=== PATIENT | male | born 1970 | race Caucasian/White ===

== ENCOUNTER 2019-01-25 15:57 | Emergency (ER) | payer MEDICAID, OTHER ==
[2019-01-25 16:06] VITALS: BP 138/92; PULSE 84; RESP 16; TEMP 97.7; O2SAT 98
--- NOTE | 2019-01-25 17:17 | ED PDOC ---
HPI: Abdomen Time Seen by Provider: 01/25/19 17:07 Chief Complaint (Nursing): Abdominal Pain Chief Complaint (Provider): Medical clearance History Per: Patient History/Exam Limitations: no limitations Onset/Duration Of Symptoms: Days (4x) Current Symptoms Are (Timing): Gone Now Severity: Mild Additional Complaint(s): 48 year old male with no past medical history presents to the ED for medical clearance. 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 Patient reports that his last episode of vomiting was 4x nights ago. 2-3x nights ago, patient reports having 2-3x episodes of diarrhea. Patient reports eating only rice and a banana yesterday, Patient states that today upon arrival to work, he was instructed to get medical clearance from a doctor prior to returning. Patient denies having abdominal pain, fevers, chest pain, shortness of breath, nausea, vomiting, or urinary symptoms. Patient states that he is eating normally since yesterday. PMD: None provided. Past Medical History Reviewed: Historical Data, Nursing Documentation, Vital Signs Vital Signs: Last Vital Signs Temp 97.7 F 01/25/19 16:03 Pulse 84 01/25/19 16:03 Resp 16 01/25/19 16:03 BP 138/92 H 01/25/19 16:03 Pulse Ox 98 01/25/19 16:03 ESTEPHANIA Report Viewed: Yes Primary Care Provider: FAMILY PROVIDER,NO - Medical History PMH: No Chronic Diseases Denies: HIV - Surgical History Surgical History: Back Surgery - Family History Family History: States: No Known Family Hx - Home Medications Home Medications: Ambulatory Orders Medication Instructions Recorded Promethazine DM [Phenergan DM 10 ml PO TID #8 oz 11/16/16 Syrup] levoFLOXacin [Levaquin] 500 mg PO DAILY #7 tab 11/16/16 - Allergies Allergies/Adverse Reactions: Allergies Allergy/AdvReac Type Severity Reaction Status Date / Time No Known Allergies Allergy Verified 01/25/19 16:03 Review of Systems ROS Statement: Except As Marked, All Systems Reviewed And Found Negative Constitutional: Negative for: Fever Cardiovascular: Negative for: Chest Pain Respiratory: Negative for: Shortness of Breath Gastrointestinal: Negative for: Nausea, Vomiting, Abdominal Pain, Diarrhea Genitourinary Male: Negative for: Dysuria, Frequency, Incontinence Physical Exam - Reviewed Nursing Documentation Reviewed: Yes Vital Signs Reviewed: Yes - Physical Exam Appears: Positive for: Well, Non-toxic, No Acute Distress Head Exam: Positive for: ATRAUMATIC, NORMOCEPHALIC Skin: Positive for: Normal Color, Warm, Dry Cardiovascular/Chest: Positive for: Regular Rate, Rhythm Respiratory: Positive for: Normal Breath Sounds Gastrointestinal/Abdominal: Positive for: Normal Exam, Bowel Sounds (normal), Soft, Other (large abdomen). Negative for: Tenderness Neurological/Psych: Positive for: Awake, Alert, Oriented (3x) - ECG O2 Sat by Pulse Oximetry: 98 (RA) Pulse Ox Interpretation: Normal Medical Decision Making Medical Decision Makin:07 Initial impression: 48 year old male in the ED for medical clearance 17:13 Patient is medically stable, and requires no further treatment in the ED at this time. Patient will be discharged home cleared for work. Counseling was provided and all questions were answered regarding diagnosis. There is agreement to discharge plan. Return if symptoms persist or worsen. ScribeAttestation: Documented Michael Wynn, acting as a scribe for Bijal Champagne BROADCAST TRANSMITTER OPERATOR. Provider ScribeAttestation: All medical record entries made by the Scribe were at my direction and personally dictated by me. I have reviewed the chart and agree that the record accurately reflects my personal performance of the history, physical exam, medical decision making, and the department course for this patient. I have also personally directed, reviewed, and agree with the discharge instructions and disposition. Disposition - Clinical Impression Clinical Impression: Food poisoning - Patient ED Disposition Is Patient to be Admitted: No Counseled Patient/Family Regarding: Diagnosis - Disposition Disposition: Routine/Home Disposition Time: 17:13 Condition: GOOD Additional Instructions: Patient is cleared to return to work. Instructions: Food Poisoning (DC) Forms: [facility] (Yoruba), [facility] ED School/Work Excuse Print Language: NIUEAN - POA Present On Arrival: None
== END 2019-01-25 17:14 | disposition home or self-care (01) ==
LOC: H.ER 15:57
DX: A05.9 Bacterial foodborne intoxication, unspecified (principal)